=== PATIENT | male | born 1975 | race Caucasian/White ===

== ENCOUNTER 2022-07-30 07:12 | Emergency (ER) | payer SELFPAY ==
[2022-07-30 07:21] VITALS: BP 146/86; PULSE 72; RESP 14; TEMP 36.7; O2SAT 98; BMI 30.4
--- NOTE | 2022-07-30 07:37 | US_ITS ---
WS: [id number] TESTICULAR ULTRASOUND HISTORY: right testicle and groin pain for 3 days COMPARISON: None available. TECHNIQUE: Real-time and color Doppler imaging or utilized to perform a testicular ultrasound. Right testicle: 5.2 cm x 4.0 cm x 2.9 cm. Normal size and echogenicity. No mass or torsion. Normal color Doppler is present throughout. Systolic and diastolic velocities are both present. Small hydrocele. There are a few low-level echoes within the hydrocele. Right epididymis: Normal epididymis with no increased vascularity. Left testicle: 4.5 cm x 3.8 cm x 3.1 cm. Normal size and echogenicity. No mass or torsion. Normal color Doppler is present throughout. Systolic and diastolic velocities are both present. No significant hydrocele. Left epididymis: Normal epididymis with no increased vascularity. Unremarkable inguinal canals. US/US scrotum [id number] IMPRESSION: 1. No testicular mass or torsion. 2. Normal and adequate blood flow identified to both testicles. 3. Small RIGHT hydrocele.
--- NOTE | 2022-07-30 07:50 | ED_ITS ---
HPI - Male Genitourinary General: Chief complaint: Abdominal Pain Stated complaint: Hurting in abd to testicle Time Seen by Provider: 07/30/22 07:30 Source: patient Mode of arrival: ambulatory Limitations: no limitations History of Present Illness: Patient states that he started having right testicular pain while having intercourse with his on Thursday. He states he immediately had right testicular pain during intercourse and pain is persisted since then. He states it is painful to walk due to the pain in his right testicle and right groin. He states pain radiates up into his right lower andreas drant of his abdomen. Denies any fever or dysuria. Denies any hematuria or penile discharge. Denies any flank pain. He does have a past medical history of varicocele on that side. Does have possible history of kidney stones. Past surgical history includes appendectomy, cholecystectomy multiple basket retrieval's for kidney stones. Lower back surgery, knee surgery, shoulder surgery. He states he is allergic to morphine and Dilaudid. Duration: constant Associated symptoms: Deny hematuria, nausea or vomiting Review of Systems Const: Denies: fever(s) or chills Eyes: Denies: change in vision ENMT: Denies: throat pain Card: Denies: chest pain or palpitations Resp: Denies: dyspnea or wheezing GI: Denies: nausea or vomiting : Reports: urinary frequency, testicular pain and scrotal swelling; Denies: flank pain or hematuria Musc: Denies: neck pain or back pain Skin/Breast: Denies: rash or pruritus Neuro: Denies: headache(s) or numbness in extremities Psych: Denies: anxiety Siddhartha/Lymph: Denies: enlarged lymph nodes [facility] ED Supplemental [facility] Information: See history above. Physical Exam Const: COMMON NORMALS: no acute distress, patient oriented x3, alert and well nourished GENERAL APPEARANCE: cooperative HENMT: COMMON NORMALS: normocephalic and atraumatic HEAD & SCALP: normocephalic and atraumatic Eye: COMMON NORMALS: EOMs intact bilaterally Neck/C-Spine: COMMON NORMALS: full ROM, no lymphadenopathy, supple and no JVD Lymph: LYMPHATIC: no lymphadenopathy noted Chest: COMMONS NORMALS: normal inspection of the chest and normal palpation of entire chest wall Resp: COMMON NORMALS: normal respiratory effort, No retractions, No use of accessory muscles and clear to auscultation bilaterally AUSCULTATION: clear to auscultation bilaterally Cardio: COMMON NORMALS: no JVD, regular rate, regular rhythm and Peripheral pulses 2+ throughout RATE: regular rate RHYTHM: regular rhythm PERIPHERAL PULSES: Peripheral pulses 2+ throughout GI: COMMON NORMALS: Normal to inspection, nondistended, normoactive bowel sounds present and Soft to palpation PALPATION: Yes Soft to palpation : COMMON NORMALS: Yes no CVA tenderness BLADDER/KIDNEY EXAM: Yes no CVA tenderness OTHER: Patient has moderate pain to proximal right testicle. No swelling to the scrotum or groin area. No erythema. No induration. No evidence of abscess. No pustules. No lesions. Circumcised male. Patient has mild pain in the right inguinal canal. Back/Pelvis: COMMON NORMALS: no CVA tenderness Extremity: COMMON NORMALS: normal to inspection and full ROM Neuro: COMMON NORMALS: patient oriented x3, CN's II-XII intact bilaterally, moves all extremities, no focal motor deficits and no sensory deficits noted SENSORIUM/ORIENTATION: Yes alert Psych: COMMON NORMALS: mental status grossly normal, Normal thought process present, cooperative, normal affect and speech normal SPEECH: Yes normal speech THOUGHT PROCESS: Normal thought process present Skin: COMMON NORMALS: no rashes or lesions noted GENERAL SKIN EXAM: no rashes or lesions noted Course Vital Signs: Vital signs: Vital Signs Temperature 98.0 F 07/30/22 09:25 Pulse Rate 72 07/30/22 09:25 Respiratory Rate 14 07/30/22 09:25 Blood Pressure 146/86 07/30/22 09:25 Pulse Oximetry 98 07/30/22 09:25 Oxygen Delivery Me thod 07/30/22 09:25 MDM - Male Medical Decision Making Rule out torsion. 1050: Patient is feeling better but still has pain in the right inguinal area. Lab Data : 07/30/22 08:47 07/30/22 08:47 Radiology Impressions Scrotum Ultrasound 07/30/22 07:37 IMPRESSION: 1. No testicular mass or torsion. 2. Normal and adequate blood flow identified to both testicles. 3. Small RIGHT hydrocele. Abdomen/Pelvis CT 07/30/22 08:41 IMPRESSION: 1. No acute findings in the abdomen or pelvis. 2. Prior cholecystectomy. 3. No hydronephrosis in either kidney. 4. Prior appendectomy. 5. Small RIGHT hydrocele. Tiny fat-containing RIGHT proximal inguinal hernia. 6. Sigmoid diverticulosis. No evidence of acute diverticulitis. 7. No other remarkable findings. Laboratory Results WBC 7.4 10^3/uL (4.0-10.0) 07/30/22 08:47 RBC 5.37 10^6/uL (4.1-5.3) H 07/30/22 08:47 Hgb 16.8 g/dL (11.7-16.6) H 07/30/22 08:47 Hct 48.6 % (42.0-52.0) 07/30/22 08:47 MCV 90.5 fl (80-94) 07/30/22 08:47 MCH 31.3 pg (28.0-34.0) 07/30/22 08:47 MCHC 34.6 g/dL (30.0-36.0) 07/30/22 08:47 RDW 12.4 % (12.1-15.1) 07/30/22 08:47 Plt Count 277 10^3/cmm (130-400) 07/30/22 08:47 MPV 9.7 fL (7.4-10.4) 07/30/22 08:47 Neut % (Auto) 53.4 % 07/30/22 08:47 Lymph % (Auto) 28.0 % 07/30/22 08:47 Waldo % (Auto) 6.0 % 07/30/22 08:47 Eos % (Auto) 11.5 % 07/30/22 08:47 Baso % (Auto) 0.8 % 07/30/22 08:47 Neut # (Auto) 3.94 10^3/uL (1.8-7.7) 07/30/22 08:47 Lymph # (Auto) 2.1 10^3/uL (0.8-4.8) 07/30/22 08:47 Waldo # (Auto) 0.4 10^3/uL (0.2-0.9) 07/30/22 08:47 Eos # (Auto) 0.9 10^3/uL (0.0-0.8) H 07/30/22 08:47 Baso # (Auto) 0.1 10^3/uL (0.0-0.1) 07/30/22 08:47 Nucleated RBC % (auto) 0 % 07/30/22 08:47 Nucleated RBCs # 0.0 /100WBC 07/30/22 08:47 Sodium 137 mmol/L (136-145) 07/30/22 08:47 Potassium 4.4 mmol/L (3.5-5.1) 07/30/22 08:47 Chloride 102 mmol/L (98-107) 07/30/22 08:47 Carbon Dioxide 26 mmol/L (22-29) 07/30/22 08:47 Anion Gap 13.4 (5-19) 07/30/22 08:47 BUN 8 mg/dL (6-20) 07/30/22 08:47 Creatinine 0.9 mg/dL (0.7-1.2) 07/30/22 08:47 GFR Calculation 90.1 mL/min (90-130) 07/30/22 08:47 Glucose 99 mg/dL (65-115) 07/30/22 08:47 Calculated Osmolality 282 mOsm/kg (285-295) L 07/30/22 08:47 Calcium 9.7 mg/dL (8.5-10.5) 07/30/22 08:47 Urine Color Yellow (Yellow) 07/30/22 08:18 Urine Appearance Clear (CLEAR) 07/30/22 08:18 Urine pH 8 (5-7) H 07/30/22 08:18 Ur Specific Sims 1.015 (1.005-1.030) 07/30/22 08:18 Urine Protein Neg (Negative) 07/30/22 08:18 Urine Glucose (UA) Norm (Normal) 07/30/22 08:18 Urine Ketones Negative (Negative) 07/30/22 08:18 Urine Blood Neg (Negative) 07/30/22 08:18 Urine Nitrate Negative (Negative) 07/30/22 08:18 Urine Bilirubin Neg (Negative) 07/30/22 08:18 Prot Sulfosalicylic Acd Negative (Negative) 07/30/22 08:18 Urine Urobilinogen Neg mg/dL (Negative) 07/30/22 08:18 Ur Leukocyte Esterase Negative (Negative) 07/30/22 08:18 Urine RBC None /hpf (0-2) 07/30/22 08:18 Urine WBC None /hpf (0-5) 07/30/22 08:18 Ur Squamous Epith Cells None /hpf (0-5) 07/30/22 08:18 Amorphous Sediment Not Reportable 07/30/22 08:18 Urine Bacteria None /hpf (NONE) 07/30/22 08:18 Imaging Data US: Radiologist's impression: Ordering Provider/Ordering MD: Burke Hernandez MD Date of Service: 07/30/22 Procedure(s): US scrotum [id number] Accession Number(s): [id number] Report Number: [id number] WS: [id number] TESTICULAR ULTRASOUND HISTORY: right testicle and groin pain for 3 days COMPARISON: None available. TECHNIQUE: Real-time and color Doppler imaging or utilized to perform a testicular ultrasound. Right testicle: 5.2 cm x 4.0 cm x 2.9 cm. Normal size and echogenicity. No mass or torsion. Normal color Doppler is present throughout. Systolic and diastolic velocities are both present. Small hydrocele. There are a few low-level echoes within the hydrocele. Right epididymis: Normal epididymis with no increased vascularity. Left testicle: 4.5 cm x 3.8 cm x 3.1 cm. Normal size and echogenicity. No mass or torsion. Normal color Doppler is present throughout. Systolic and diastolic velocities are both present. No significant hydrocele. Left epididymis: Normal epididymis with no increased vascularity. Unremarkable inguinal canals. US/US scrotum [id number] IMPRESSION: ? 1.? No testicular mass or torsion. 2.? Normal and adequate blood flow identified to both testicles. 3.? Small RIGHT hydrocele. ? Dictated By: Marianna Espana DO Signed By: Marianna Espana DO Signed Date/Time: 07/30/[address] Abd/Pel: Radiologist's impression: Ordering Provider/Ordering MD: Burke Hernandez MD Date of Service: 07/30/22 Procedure(s): CT abdomen pelvis w con* [id number] Accession Number(s): [id number] Report Number: [id number] WS: [id number] CT ABDOMEN PELVIS TECHNIQUE: Contrast-enhanced CT of the abdomen and pelvis with coronal and sagittal reformatted images. CLINICAL INFORMATION: pain COMPARISON: CT 6 21,015 DLP: 1088.[address] scans at [facility] use at least one of these dose optimization techniques: automated exposure control; mA and/or kV adjustment per patient size (includes targeted exams where dose is matched to clinical indication); or iterative reconstruction. FINDINGS: Normal liver. Prior cholecystectomy. Normal portal vein and splenic vein. Normal spleen. Normal GE junction. Lung bases are well aerated. Normal pancreatic parenchymal enhancement. Normal portal vein and splenic vein. Adrenal glands are normal. Normal renal parenchymal enhancement. No hydronephrosis. Small bilateral renal cysts. Normal caliber abdominal aorta. Celiac and SMA are patent. Sigmoid diverticulosis. No evidence of acute diverticulitis. No high-grade small or large bowel obstruction. Appendectomy. No free fluid in the abdomen or pelvis. Tiny fat-containing RIGHT proximal inguinal hernia. Partially visualized small RIGHT hydrocele.? Slight anterolisthesis L4 on L5 and advanced facet art hropathy at this level. CT/CT abdomen pelvis w con* [id number] IMPRESSION: ? 1.? No acute findings in the abdomen or pelvis. 2.? Prior cholecystectomy. 3.? No hydronephrosis in either kidney. 4.? Prior appendectomy. 5.? Small RIGHT hydrocele. Tiny fat-containing RIGHT proximal inguinal hernia. 6.? Sigmoid diverticulosis. No evidence of acute diverticulitis. 7.? No other remarkable findings. ? Dictated By: Almas Johnson MD Signed By: Almas Johnson MD Signed Date/Time: 07/30/22 0958 Discharge Plan Discharge Patient Disposition: Home Clinical Impression: Hydrocele in adult, Inguinal hernia of right side without obstruction or gangrene Condition: Stable Prescriptions: New oxycodone 5 mg capsule 5 mg PO Q6H PRN (Reason: pain) Qty: 10 0RF Rx Instructions: prn severe pain ondansetron 4 mg tablet,disintegrating 4 mg PO Q6H PRN (Reason: nausea and vomiting) Qty: 10 1RF Discharge Orders: Discharge ED (Routine); Ordered 07/30/22 Ordered By: Burke Hernandez Referrals: Raymond Mccurdy MD [Physician] - 4-7 days (for evaluation of right inguinal hernia) Jeff Hooper [Primary Care Provider] - Aramis Thornton MD [Physician] - 1-3 days Discharge Diet: Advance as tolerated Discharge Activity: Increase activity as tolerated Patient Instructions: Hydrocele (ED), Inguinal Hernia (ED), Opioid Safety, Pain Management Activity Restrictions/Additional Instructions: Rest. Attempt to lay flat is much as possible for the next 2 days. Follow-up with urology concerning hydrocele. Follow-up with general surgery concerning inguinal hernia. Avoid lifting more than 5 pounds. Return if symptoms worsen. Coding Level of Care Code ED Oiler Bander for Chg Fwd Exam Comprehensive
[2022-07-30 08:35] LABS: Bilirubin Urine Neg (Negative); Blood Urine Neg (Negative); Glucose Urine UA Norm (Normal); Ketones Urine Negative (Negative); Leukocyte Esterase Urine Negative (Negative); Nitrate Urine Negative (Negative); Protein Urine Neg (Negative); Specific Gravity, Urine 1.015 (1.005-1.030); Sulfosalicylic Acid Urine Negative (Negative); Urine Appearance Clear (CLEAR); Urine Color Yellow (Yellow); Urobilinogen Urine Neg (Negative); pH Urine 8 (5-7)
--- NOTE | 2022-07-30 08:41 | CT_ITS ---
WS: [id number] CT ABDOMEN PELVIS TECHNIQUE: Contrast-enhanced CT of the abdomen and pelvis with coronal and sagittal reformatted image s. CLINICAL INFORMATION: pain COMPARISON: CT 6 21,015 DLP: 1088.[address] scans at [facility] use at least one of these dose optimization techniques: automated e xposure control; mA and/or kV adjustment per patient size (includes targeted exams where dose is matc hed to clinical indication); or iterative reconstruction. FINDINGS: Normal liver. Prior cholecystectomy. Normal portal vein and splenic vein. Normal spleen. Normal GE ju nction. Lung bases are well aerated. Normal pancreatic parenchymal enhancement. Normal portal vein an d splenic vein. Adrenal glands are normal. Normal renal parenchymal enhancement. No hydronephrosis. S mall bilateral renal cysts. Normal caliber abdominal aorta. Celiac and SMA are patent. Sigmoid diverticulosis. No evidence of acute diverticulitis. No high-grade small or large bowel obstr uction. Appendectomy. No free fluid in the abdomen or pelvis. Tiny fat-containing RIGHT proximal ingu inal hernia. Partially visualized small RIGHT hydrocele. Slight anterolisthesis L4 on L5 and advance d facet arthropathy at this level. CT/CT abdomen pelvis w con* [id number] IMPRESSION: 1. No acute findings in the abdomen or pelvis. 2. Prior cholecystectomy. 3. No hydronephrosis in either kidney. 4. Prior appendectomy. 5. Small RIGHT hydrocele. Tiny fat-containing RIGHT proximal inguinal hernia. 6. Sigmoid diverticulosis. No evidence of acute diverticulitis. 7. No other remarkable findings.
[2022-07-30 08:49] LABS: Add Urine Culture? No
[2022-07-30 08:55] LABS: Basophils # 0.1 10^3/uL (0.0-0.1); Basophils % 0.8 %; Eosinophils # 0.9 10^3/uL (0.0-0.8); Eosinophils % 11.5 %; Hematocrit 48.6 % (42.0-52.0); Hemoglobin 16.8 g/dL (11.7-16.6); Lymphocytes # 2.1 10^3/uL (0.8-4.8); Mean Corpuscular HGB Conc 34.6 g/dL (30.0-36.0); Mean Corpuscular Hemoglobin 31.3 pg (28.0-34.0); Mean Corpuscular Volume 90.5 fl (80-94); Mean Platelet Volume 9.7 fL (7.4-10.4); Monocytes # 0.4 10^3/uL (0.2-0.9); Neutrophils # 3.94 10^3/uL (1.8-7.7); Neutrophils % 53.4 %; Nucleated Red Blood Cells % 0 %; Platelet Count 277 10^3/cmm (130-400); Red Blood Count 5.37 10^6/uL (4.1-5.3); Red Cell Distribution Width 12.4 % (12.1-15.1); White Blood Count 7.4 10^3/uL (4.0-10.0)
--- NOTE | 2022-07-30 09:00 | PC.PHAR ---
pt states he takes no rx or otc meds
[2022-07-30 09:12] LABS: Anion Gap 13.4 (5-19); Blood Urea Nitrogen 8 mg/dL (6-20); Calcium 9.7 mg/dL (8.5-10.5); Carbon Dioxide 26 mmol/L (22-29); Chloride 102 mmol/L (98-107); Glomerular Filtration Rate 90.1 mL/min (90-130); Glucose 99 mg/dL (65-115); Osmolality Calculated 282 mOsm/kg (285-295); Potassium 4.4 mmol/L (3.5-5.1); Sodium 137 mmol/L (136-145)
[2022-07-30 09:25] VITALS: BP 146/86; PULSE 72; RESP 14; TEMP 36.7; O2SAT 98
[2022-07-30] MEDS: ketorolac 30 mg/mL INJ IVP (09:27)
[2022-07-30] MEDS: iohexol 350 mg/mL 100 mL Btl IV (09:39)
[2022-07-30] MEDS: oxyCODONE-APAP 5-325 mg Tablet 1 TAB PO (10:57)
[2022-07-30 11:16] VITALS: BP 146/86; PULSE 72; RESP 14; TEMP 36.7; O2SAT 98
== END 2022-07-30 11:18 | disposition home or self-care (01) ==
PROVIDERS: Emergency Provider Family Medicine; PCP Student in an Organized Health Care Education/Training Program
DX: N43.3 Hydrocele, unspecified (principal); K40.90 Unilateral inguinal hernia, without obstruction or gangrene, not specified as recurrent
CPT/HCPCS: 74177; 76870; 80048; 81001; 85025; 96374; 99285; J1885; Q9967